=== PATIENT | male | born 1960 | race Caucasian/White ===

== ENCOUNTER 2019-03-27 09:38 | Inpatient (IN) | payer MEDICAID ==
[2019-03-19 11:21] LABS: BASOPHILS % (AUTO) 0.9 % (0-1); EOSINOPHILS # (AUTO) 0.1 X10'3 (0-0.9); LYMPHOCYTES # (AUTO) 0.9 X10'3 (1.1-4.8); LYMPHOCYTES % (AUTO) 24.6 % (21-51); MEAN CORPUSCULAR HEMOGLOBIN 34.4 PG (27.0-31.0); MEAN CORPUSCULAR HGB CONC 33.9 g/dL (33.0-36.5); MEAN CORPUSCULAR VOLUME 101.6 FL (78-98); MEAN PLATELET VOLUME 8.1 FL (7.4-10.4); MONOCYTES # (AUTO) 0.7 X10'3 (0-0.9); MONOCYTES % (AUTO) 20.2 % (2-12); NEUTROPHILS # (AUTO) 1.9 X10'3 (1.8-7.7); NEUTROPHILS % (AUTO) 52.3 % (42-75); PRE OP HEMATOCRIT 42.8 % (42.0-52.0); PRE OP HEMOGLOBIN 14.5 g/dL (14.0-17.9); PRE OP PLATELET COUNT 203 X10'3 (140-440); RED BLOOD COUNT 4.21 X10'6 (4.70-6.10); RED CELL DISTRIBUTION WIDTH 14.6 % (11.5-14.5)
[2019-03-19 11:32] LABS: PRE OP PROTIME 10.5 SECONDS (9.0-12.0)
[2019-03-19 11:42] LABS: ALBUMIN 4.2 G/DL (3.4-5.0); ALBUMIN/GLOBULIN RATIO 1.3 (1.1-1.5); ALKALINE PHOSPHATASE 85 IU/L (46-116); BLOOD UREA NITROGEN 17 MG/DL (7-18); CHLORIDE 104 MMOL/L (99-107); CREATININE 0.85 MG/DL (0.60-1.10); PRE OP ANION GAP 10 (8-16); PRE OP AST 55 U/L (10-37); PRE OP BILIRUB, TOTAL 1.3 MG/DL (0.0-1.0); PRE OP GLUCOSE 95 MG/DL (70-104); PRE OP SODIUM 141 MMOL/L (135-145); TOTAL CARBON DIOXIDE 26.7 MMOL/L (24-32); TOTAL PROTEIN 7.5 G/DL (6.4-8.2); eGFR > 90 ML/MIN
[2019-03-19 11:46] LABS: PRE OP ALT 86 U/L (30-65)
[2019-03-19 12:15] LABS: PLATELET ESTIMATE NORMAL; TOTAL CELLS COUNTED 100
[2019-03-27] VITALS (15 sets, daily range): BP systolic 133–147; BP diastolic 68–96
[~2019-03-27] VITALS: Ht 182.9 cm; Wt 83.0 kg
[~2019-03-27 09:38] MED LIST: ACET-2119 PO; NAPR220T67 PO
[2019-03-27] MEDS ORDERED: cefazolin/dext.iso 2gm/100ml 100 ML IV ONE (12:30)
[2019-03-27] MEDS ORDERED: vancomycin inj 1,500 MG in normal saline 300ml IV soln IV ONE (12:30)
[2019-03-27] MEDS ORDERED: ringers solution, lacted 1,000 ML IV SCH ×2 (12:30→16:10)
[2019-03-27] MEDS ORDERED: tranexamic acid inj. 1,000 MG in normal saline 100 ML IV ONE (12:30)
[2019-03-27] MEDS ORDERED: famotidine 20mg tablet PO ONE (12:53)
[2019-03-27] MEDS ORDERED: MIDAZolam 5mg/5ml vial ONE (13:49)
[2019-03-27] MEDS ORDERED: morphine /PF 1mg/ml 10ml inj. ONE (13:49)
[2019-03-27] MEDS ORDERED: fentaNYL/PF 50MCG/1 ML 2ML syringe ONE (13:49)
[2019-03-27] MEDS ORDERED: ePHEDrine 50MG/ML INJ. ONE (13:50)
[2019-03-27] MEDS ORDERED: ceFAZolin 1000mg inj ONE (14:13)
[2019-03-27] MEDS ORDERED: diphenhydrAMINE 50 mg/ml inj IV PRN (16:10)
[2019-03-27] MEDS ORDERED: morphine 4 MG/ML inj SYRINge IV PRN ×2 (16:10)
[2019-03-27] MEDS ORDERED: naloxone 2mg/2ml inj 1.6 MG in normal saline 500ml IV soln 500 ML IV PRN (16:10)
[2019-03-27] MEDS ORDERED: proCHLORperazine 10 MG/2 ml inj IV PRN (16:10)
[2019-03-27] MEDS ORDERED: ondansetron/PF 4mg/2ml inj IV PRN ×3 (16:10→17:00)
[2019-03-27] MEDS ORDERED: meperidine/PF 25mg/ml syringe IV PRN ×3 (16:10)
[2019-03-27] MEDS ORDERED: LIDOcaine 1%/PF 5ML 10 MG/ML VIAL ONE (16:36)
[2019-03-27] MEDS ORDERED: BUPIVAcaine/PF 7.5mg/ml (0.75%) 10ml vial ONE (16:36)
[2019-03-27] MEDS ORDERED: diphenhydrAMINE 50 mg/ml inj ONE (16:36)
[2019-03-27] MEDS ORDERED: phenylephrine 10mg/ml inj. ONE (16:36)
[2019-03-27] MEDS ORDERED: propofol inj 20 ML IV ONE (16:36)
--- NOTE | 2019-03-27 16:45 | NUR ---
ADMITTED TO PACU FROM OR ACCOMPANIED BY ANESTHESIA. INTIAL PHYSICAL ASSESSMENT DONE AND RECORDED. REPORT RECEIVED FROM ANESTHESIA.
[2019-03-27] MEDS ORDERED: magnesium hydroxide 30ml (MOM) UD suspension PO PRN (17:00)
[2019-03-27] MEDS ORDERED: diphenhydrAMINE 25mg capsule PO PRN ×2 (17:00)
[2019-03-27] MEDS ORDERED: HYDROmorphone inj. 0.5 MG/0.5 ML DISP.SYRIN IV PRN (17:00)
[2019-03-27] MEDS ORDERED: acetaminophen 325mg tablet PO PRN (17:00)
[2019-03-27] MEDS ORDERED: bisacodyl 10mg suppository rectal RC PRN (17:00)
[2019-03-27] MEDS ORDERED: aspirin 325mg tablet PO SCH (17:30)
--- NOTE | 2019-03-27 17:40 | NUR ---
ASSUMED CARE, RECEIVED REPORT FROM LUCY SKAGGS. PATIENT STARTED ON POST OP VS. MOTHER AT BEDSIDE. PATIENT REPORTS DULL PAIN 2/10. WILL CONTINUE TO MONITOR.
--- NOTE | 2019-03-27 17:45 | NUR ---
PACU DISCHARGE CRITERIA MET, REPORT GIVEN TO FLOOR. DENIES PAIN OR DISCOMFORT, TRANSFERRED TO ROOM IN STABLE GOOD CONDITION.
--- NOTE | 2019-03-27 18:28 | NUR ---
Problems reprioritized. Patient report given, questions answered & plan of care reviewed with YAW SKAGGS.
[2019-03-27] MEDS: potassium Cl 20mEq in NS 1,000 ML IV SCH (18:55)
[2019-03-27] MEDS ORDERED: vancomycin/NS 1 GM ADD-VANTAGE 250 ML IV SCH (20:00)
[2019-03-27] MEDS: sennosides 8.6mg tablet PO SCH (20:23)
[2019-03-27] MEDS: HYDROcodone/acetaminophen 10/325mg tab PO PRN (20:23)
[2019-03-27] MEDS: ketorolac trometh. 30mg/ml inj. IV SCH (20:24)
[2019-03-27] MEDS: ceFAZolin 1GM/D5W- ADD-VANTAGE 50 ML IV SCH (23:48)
[2019-03-28 01:25] VITALS: BP 107/60
[2019-03-28] MEDS: ketorolac trometh. 30mg/ml inj. IV SCH ×3 (02:29→14:03)
[2019-03-28 05:25] VITALS: BP 98/56
[2019-03-28] MEDS: HYDROcodone/acetaminophen 10/325mg tab PO PRN ×5 (05:27→22:52)
[2019-03-28 06:00] VITALS: BP 98/56
--- NOTE | 2019-03-28 06:00 | NUR ---
Problems reprioritized. Patient report given, questions answered & plan of care reviewed with SHARIFA Lombardi.
--- NOTE | 2019-03-28 06:08 | NUR ---
Patient in room [facility]TH[facility] 4024. I have received report from YAW SKAGGS and had the opportunity to ask questions and assume patient care.
[2019-03-28] MEDS: potassium Cl 20mEq in NS 1,000 ML IV SCH (06:20)
[2019-03-28 07:06] LABS: BASOPHILS # (AUTO) 0.1 X10'3 (0-0.2); BASOPHILS % (AUTO) 0.9 % (0-1); EOSINOPHILS # (AUTO) 0.1 X10'3 (0-0.9); EOSINOPHILS % (AUTO) 2.2 % (0-6); HEMATOCRIT 36.4 % (42.0-52.0); HEMOGLOBIN 12.7 g/dl (14.0-17.9); LYMPHOCYTES # (AUTO) 1.1 X10'3 (1.1-4.8); LYMPHOCYTES % (AUTO) 16.4 % (21-51); MEAN CORPUSCULAR HEMOGLOBIN 34.5 PG (27.0-31.0); MEAN CORPUSCULAR HGB CONC 34.9 g/dL (33.0-36.5); MEAN CORPUSCULAR VOLUME 98.8 FL (78-98); MONOCYTES # (AUTO) 0.7 X10'3 (0-0.9); MONOCYTES % (AUTO) 9.8 % (2-12); NEUTROPHILS # (AUTO) 4.9 X10'3 (1.8-7.7); NEUTROPHILS % (AUTO) 70.7 % (42-75); PLATELET COUNT 256 X10'3 (140-440); RED BLOOD COUNT 3.69 X10'6 (4.70-6.10); WHITE BLOOD COUNT 6.9 X10'3 (4.5-11.0)
[2019-03-28] MEDS: ceFAZolin 1GM/D5W- ADD-VANTAGE 50 ML IV SCH (07:12)
[2019-03-28] MEDS: aspirin 81mg tablet.DR PO SCH ×2 (07:12→17:36)
[2019-03-28 07:28] LABS: ALANINE AMINOTRANSFERASE 36 U/L (12-78); ALBUMIN 3.4 G/DL (3.4-5.0); ALBUMIN/GLOBULIN RATIO 1.3 (1.1-1.5); ALKALINE PHOSPHATASE 66 IU/L (46-116); ANION GAP 7 (8-16); ASPARTATE AMINO TRANSFERASE 23 U/L (10-37); BILIRUBIN,TOTAL 1.3 MG/DL (0.1-1.0); BLOOD UREA NITROGEN 12 MG/DL (7-18); CALCIUM 8.1 MG/DL (8.5-10.1); CHLORIDE 104 MMOL/L (99-107); GLUCOSE 117 MG/DL (70-104); POTASSIUM 4.2 MMOL/L (3.5-5.1); SODIUM 138 MMOL/L (135-145); TOTAL CARBON DIOXIDE 27.1 MMOL/L (24-32); TOTAL PROTEIN 6.1 G/DL (6.4-8.2); eGFR 77 ML/MIN
[2019-03-28 10:00] VITALS: BP 105/67
--- NOTE | 2019-03-28 16:18 | NUR ---
Consult: Pt s/p arthroplasty of right hip. Pt eating well, PO intake 75-100% meeting nutrient needs. GALDINO and dental internship visited pt at bedside, provided verbal and written high protein education with RD contact information. Pt reports a good appetite and denies any food allergies. Will continue to follow. Addendum: 03/28/19 at 1618 by Wing Geovani AHMADI Amended: Links added. Addendum: 03/28/19 at [address] I have reviewed and agree with note by Property Worker. Elza Hinojosa RD
[2019-03-28 18:00] VITALS: BP 110/61
--- NOTE | 2019-03-28 18:15 | NUR ---
Problems reprioritized. Patient report given, questions answered & plan of care reviewed with KAREEM SKAGGS.
--- NOTE | 2019-03-28 18:18 | NUR ---
Patient in room ORTHO 4024. I have received report from Harjit SKAGGS and had the opportunity to ask questions and assume patient care.
[2019-03-28] MEDS: sennosides 8.6mg tablet PO SCH (20:19)
[2019-03-28 21:58] VITALS: BP 103/64
[2019-03-29] MEDS: HYDROcodone/acetaminophen 10/325mg tab PO PRN ×3 (05:28→14:02)
[2019-03-29 06:00] VITALS: BP 120/77
--- NOTE | 2019-03-29 06:10 | NUR ---
Patient in room ORTHO 4024. I have received report from KAREEM SKAGGS and had the opportunity to ask questions and assume patient care.
--- NOTE | 2019-03-29 06:11 | NUR ---
Problems reprioritized. Patient report given, questions answered & plan of care reviewed with Harjit SKAGGS.
[2019-03-29 06:34] LABS: BASOPHILS % (AUTO) 0.5 % (0-1); EOSINOPHILS # (AUTO) 0.1 X10'3 (0-0.9); EOSINOPHILS % (AUTO) 1.8 % (0-6); HEMOGLOBIN 11.5 g/dl (14.0-17.9); LYMPHOCYTES # (AUTO) 0.8 X10'3 (1.1-4.8); LYMPHOCYTES % (AUTO) 12.8 % (21-51); MEAN CORPUSCULAR HEMOGLOBIN 34.3 PG (27.0-31.0); MEAN CORPUSCULAR HGB CONC 34.9 g/dL (33.0-36.5); MEAN CORPUSCULAR VOLUME 98.3 FL (78-98); MEAN PLATELET VOLUME 8.4 FL (7.4-10.4); MONOCYTES # (AUTO) 0.6 X10'3 (0-0.9); MONOCYTES % (AUTO) 8.9 % (2-12); NEUTROPHILS # (AUTO) 4.8 X10'3 (1.8-7.7); PLATELET COUNT 183 X10'3 (140-440); RED BLOOD COUNT 3.36 X10'6 (4.70-6.10); RED CELL DISTRIBUTION WIDTH 13.7 % (11.5-14.5); WHITE BLOOD COUNT 6.4 X10'3 (4.5-11.0)
[2019-03-29 07:07] LABS: ALANINE AMINOTRANSFERASE 27 U/L (12-78); ALKALINE PHOSPHATASE 53 IU/L (46-116); ANION GAP 5 (8-16); ASPARTATE AMINO TRANSFERASE 22 U/L (10-37); BILIRUBIN,TOTAL 0.8 MG/DL (0.1-1.0); BLOOD UREA NITROGEN 11 MG/DL (7-18); BUN/CREATININE RATIO 12.2 (5.4-32.0); CALCIUM 8.2 MG/DL (8.5-10.1); CHLORIDE 104 MMOL/L (99-107); GLUCOSE 121 MG/DL (70-104); POTASSIUM 4.1 MMOL/L (3.5-5.1); SODIUM 137 MMOL/L (135-145); TOTAL CARBON DIOXIDE 28.2 MMOL/L (24-32); TOTAL PROTEIN 5.9 G/DL (6.4-8.2); eGFR 87 ML/MIN
[2019-03-29] MEDS: aspirin 81mg tablet.DR PO SCH (08:02)
[2019-03-29 10:00] VITALS: BP 104/66
--- NOTE | 2019-03-29 16:15 | NUR ---
PATIENT DISCHARGED HOME SAFELY WITH MOTHER. ALL BELONGINGS IN POSSESSION INCLUDING A WALKER AND PRESCITPRION FOR PAIN MEDICINE. PATIENT VERBALIZES UNDERSTANDING OF ALL DC INSTRUCTIONS.
== END 2019-03-29 16:12 | disposition home or self-care (01) | DRG 301 ==
LOC: PAS IN 12:31 → EDSTATUS 14:30 → ORTHO 4S 17:15
PROVIDERS: ADMIT Orthopaedic Surgery; ATTEND Orthopaedic Surgery
PROC: 0SR9069 Replacement of Right Hip Joint with Oxidized Zirconium on Polyethylene Synthetic Substitute, Cemented, Open Approach (ICD-10-PCS; principal; 2019-03-27 13:50)
DX: M16.11 Unilateral primary osteoarthritis, right hip (principal); D62 Acute posthemorrhagic anemia; M81.0 Age-related osteoporosis without current pathological fracture
CPT/HCPCS: 36415; 80053; 82948; 85025; 85610; 85730; 86885; 86900; 86901; 86920; 87081; 97116; 97161; 97530; A4618; A7000; C1713; C1758; C1776; G0378; J0690; J1200; J1885; J2250; J2270; J2310; J2370; J2704; J3010; J3370; J3480; J3490; J7040; J7120